=== PATIENT | female | born 1975 | race Two or more races ===

== ENCOUNTER 2016-11-06 19:55 | Emergency (ER) | payer OTHER ==
--- NOTE | 2016-11-06 20:15 | EDM.PDOC ---
ED HPI Trauma - General Chief Complaint: Lower Extremity Injury/Pain Stated Complaint: LT LEG HURTS Time Seen by Provider: 11/06/16 20:13 Source: Reports: Patient - History of Present Illness INITIAL COMMENTS - FREE TEXT/NARRATIVE: HISTORY AND PHYSICAL: History of present illness: [] Patient presents with left lower extremity pain, she has had the pain since last Sunday, at the time of injury she had stumbled and heard an audible pop, she was seen to the clinic at [place] provided rest ice elevation for potential poor muscle per patient. Today his lower extremity swelling there is bruising about the ankle Homans she has been ambulating No fever nausea vomiting chills sweats Review of systems: As per history of present illness and below otherwise all systems reviewed and negative. Past medical history: As per history of present illness and as reviewed below otherwise noncontributory. Surgical history: As per history of present illness and as reviewed below otherwise noncontributory. Social history: No reported history of drug or alcohol abuse. Family history: As per history of present illness and as reviewed below otherwise noncontributory. Physical exam: HEENT: Atraumatic, normocephalic, pupils reactive, negative for conjunctival pallor or scleral icterus, mucous membranes moist, throat clear, neck supple, nontender, trachea midline. Lungs: Clear to auscultation, breath sounds equal bilaterally, chest nontender. Heart: S1S2, regular, negative for clicks, rubs, or JVD. Abdomen: Soft, nondistended, nontender. Negative for masses or hepatosplenomegaly. Negative for costovertebral tenderness. Pelvis: Stable nontender. Genitourinary: Deferred. Rectal: Deferred. Extremities: Atraumatic, negative for cords or calf pain. Neurovascular unremarkable. Left lower extremity hip and knee unaffected ankle is swollen with dependent bruising neurovascular is intact, significant tenderness proximal to insertion of the Achilles tendon along with bruising, there is also swelling in calf and tenderness, unable to perform heel rise on the left, Abrams test is positive however I do not clearly appreciate a defect of the Achilles Neuro: Awake, alert, oriented. Cranial nerves II through XII unremarkable. Cerebellum unremarkable. Motor and sensory unremarkable throughout. Exam nonfocal. Diagnostics: [] X-ray left ankle 3 views Ultrasound rule out DVT Therapeutics: [] Followup with ORtho to evaluate Achilles tendon Cam boot Impression: [] Cannot rule out Achilles tendon rupture/or partial tear Definitive disposition and diagnosis as appropriate pending reevaluation and review of above. Allergies/ADRs: Allergies No Known Allergies Allergy (Verified 11/06/16 20:03) Home Medications: Ambulatory Orders Citalopram Hydrobromide [Celexa] 20 mg PO DAILY 11/06/16 [Confirmed 11/06/16] Iron 18 mg PO 11/06/16 Lisinopril 20 mg PO DAILY 11/06/16 [Confirmed 11/06/16] Omeprazole 20 mg PO DAILY 11/06/16 [Confirmed 11/06/16] Simvastatin [Zocor] 20 mg PO BEDTIME 11/06/16 [Confirmed 11/06/16] metFORMIN [Glucophage XR] 1,000 mg PO BIDMEALS 11/06/16 [Confirmed 11/06/16] Review of Systems - Review of Systems Review Of Systems: ROS reveals no pertinent complaints other than HPI. Trauma Exam - Physical Exam Exam: See Below Course - Vital Signs Last Recorded V/S: Last Vital Signs Temp 36.2 C 11/06/16 20:06 Pulse 86 11/06/16 20:06 Resp 16 11/06/16 20:06 BP 142/84 H 11/06/16 20:06 Pulse Ox 97 11/06/16 20:06 - Orders/Labs/Meds Orders: Active Orders 24 hr Category Date Time Status Ankle Min 3V Lt [CR] Stat Exams 11/06/16 20:12 Taken Venous Doppler Lwr Ext Lt [US] Stat Exams 11/06/16 20:12 Taken Departure - Departure Time of Disposition: 21:29 Disposition: Home, Self-Care 01 Condition: good Clinical Impression: Ankle pain, left Forms: ED Department Discharge Additional Instructions: Followup with orthopedist to evaluate Achilles tendon Rest ice ibuprofen Cam boot provided As discussed you do have symptoms to go along with a partially torn Achilles however I do not appreciate a clear defect in the Achilles tendon. It is concerning that you're unable to perform a heel rise maneuver and tender along the Achilles this may indicate a partial tear [facility] Professional [address], [address] [place] [address] my orthopedic An orthopedic referral will be provided The following information is given to patients seen in the emergency department who are being discharged to home. This information is to outline your options for follow-up care. We provide all patients seen in our emergency department with a follow-up referral. The need for follow-up, as well as the timing and circumstances, are variable depending upon the specifics of your emergency department visit. If you don't have a primary care physician on staff, we will provide you with a referral. We always advise you to contact your personal physician following an emergency department visit to inform them of the circumstance of the visit and for follow-up with them and/or the need for any referrals to a consulting specialist. The emergency department will also refer you to a specialist when appropriate. This referral assures that you have the opportunity for follow-up care with a specialist. All of these measure are taken in an effort to provide you with optimal care, which includes your follow-up. Under all circumstances we always encourage you to contact your private physician who remains a resource for coordinating your care. When calling for follow-up care, please make the office aware that this follow-up is from your recent emergency room visit. If for any reason you are refused follow-up, please contact the [facility] emergency department at and asked to speak to the emergency department charge nurse. - My Orders Last 24 Hours: My Active Orders 11/06/16 20:12 Ankle Min 3V Lt [CR] Stat Venous Doppler Lwr Ext Lt [US] Stat - Assessment/Plan Last 24 Hours: My Active Orders 11/06/16 20:12 Ankle Min 3V Lt [CR] Stat Venous Doppler Lwr Ext Lt [US] Stat
[2016-11-06 22:05] VITALS: BP 131/81
--- NOTE | 2016-11-07 12:39 | CR ---
EXAM DATE: 11/06/16 PATIENT'S AGE: 41 Patient: KRUPA MARIE Facility: [place], [place] Site . Site : 1975 Study: XRay Extremity ankle [id number]/[id number] 8:30:16 PM Ordering Physician: Joe Lantigua Final Report: Indication: Pain, swelling, bruising, no known injury Technique: Three views left ankle Comparison: None Findings: Bones: Alignment is normal. No fractures or bone lesions. There is a small inferior calcaneal enthesophytes. Joint spaces: Unremarkable. Soft tissues: There is soft tissue swelling along the medial malleolus. Impression: Soft tissue swelling along the medial malleolus. No acute osseous abnormality. Dictated by Zaira Sampson MD @ Nov 06 2016 8:51PM (Electronic Signature) Report Signed by Proxy and Original Signed Document filed in the Medical Record. ALBERTO
--- NOTE | 2016-11-07 12:41 | US ---
EXAM DATE: 11/06/16 PATIENT'S AGE: 41 Patient: KRUPA MARIE Facility: [place], [place] Site . Site : 1975 Study: US Extremity Left [id number]/[id number] 8:58:12 PM Ordering Physician: Joe Lantigua Final Report: INDICATION: Pain and bruising left lower leg and ankle TECHNIQUE: Ultrasound venous duplex lower left extremity. Compression venous exam was performed using rose-scale, color Doppler, and spectral Doppler analysis. COMPARISON: None FINDINGS: Sonographic imaging demonstrates the left common femoral, deep femoral, superficial femoral, popliteal, posterior tibial and greater saphenous veins to be fully compressible with normal color Doppler blood flow. Evaluation of the site of bruising in the lower leg demonstrates a 4.3 x1.7 centimeter fluid collection. IMPRESSION: 1. No sign of deep venous thrombosis. 2. Fluid collection deep to the site of bruising in the lower leg. This may represent a hematoma. Dictated by Zaira Sampson MD @ Nov 06 2016 9:04PM (Electronic Signature) Report Signed by Proxy and Original Signed Document filed in the Medical Record. [facility]
== END 2016-11-06 21:59 | disposition home or self-care (01) ==
LOC: MW.ED 19:55
DX: S90.02XA Contusion of left ankle, initial encounter (principal); W18.40XA Slipping, tripping and stumbling without falling, unspecified, initial encounter
CPT/HCPCS: 73610-26-LT; 73610-LT; 93971-26-LT; 93971-LT; 99282; 99283

== ENCOUNTER 2022-01-17 06:28 | Day surgery (SDC) | payer BC ==
[~2022-01-17 06:28] MED LIST: Lactated Ringers 1,000 ML IV SCH
[2022-01-17] MEDS ORDERED: Lidocaine 2% 5 ML SDV ONE (07:19)
[2022-01-17] MEDS ORDERED: Sugammadex Sodium 200 MG/2 ML VIAL ONE (07:19)
[2022-01-17] MEDS ORDERED: Midazolam 1 MG/ML 2 ML SDV ONE (07:19)
[2022-01-17] MEDS ORDERED: Ketorolac 30 MG/ML SDV ONE (07:19)
[2022-01-17] MEDS ORDERED: Ondansetron 4 MG/2 ML SDV ONE (07:19)
[2022-01-17] MEDS ORDERED: fentaNYL 250 MCG/5 ML SDV ONE (07:19)
[2022-01-17] MEDS ORDERED: Propofol 200 MG/20 ML SDV ONE ×3 (07:19→10:56)
[2022-01-17] MEDS ORDERED: Bupivacaine 0.25% 30 ML SDV ONE ×2 (07:19→08:05)
[2022-01-17] MEDS ORDERED: Dexamethasone 4 MG/ML 5 ML MDV ONE (07:19)
[2022-01-17] MEDS ORDERED: Rocuronium 100 MG/10 ML MDV ONE (07:19)
[2022-01-17] MEDS ORDERED: Methylene Blue 50 MG/10 ML Ampule ONE (07:19)
[2022-01-17] MEDS ORDERED: Bupivacaine 0.25% 10 ML SDV ONE (07:20)
[2022-01-17] MEDS ORDERED: Albuterol 0.083% 2.5 MG/3 ML Neb Soln NEB PRN (07:49)
[2022-01-17] MEDS ORDERED: fentaNYL 100 MCG/2 ML SDV IVPUSH PRN (07:49)
[2022-01-17] MEDS ORDERED: Ondansetron 4 MG/2 ML SDV IVPUSH PRN ×2 (07:49→12:46)
[2022-01-17] MEDS ORDERED: Morphine 4 MG/ML VIAL IVPUSH PRN ×2 (07:49→12:46)
[2022-01-17] MEDS ORDERED: Naloxone 0.4 MG/ML SDV IVPUSH PRN (07:49)
[2022-01-17] MEDS ORDERED: Metoclopramide 10 MG/2 ML SDV IVPUSH PRN (07:49)
[2022-01-17] MEDS ORDERED: HYDROmorphone 1 MG/ML Syringe IVPUSH PRN (07:49)
[2022-01-17] MEDS ORDERED: Octyl 2-Cyanoacrylate 1 Tube ONE ×2 (07:59→11:09)
[2022-01-17] MEDS ORDERED: Scopolamine 1.5 MG Transdermal Patch TOP ONE (08:00)
[2022-01-17] MEDS ORDERED: Lidocaine 1% 20 ML MDV ONE (08:04)
[2022-01-17 08:08] LABS: BLOOD UREA NITROGEN,BUN 11 mg/dL (7.0-18.0); CHLORIDE,CL 103 mmol/L (98-107); GLUCOSE RANDOM 146 mg/dL (74-106); POTASSIUM,K 3.6 mmol/L (3.5-5.1); SODIUM,NA 138 mmol/L (136-145)
[2022-01-17 08:10] LABS: ESTIMATED GFR > 60.0 ml/min
[2022-01-17] MEDS ORDERED: Fluorescein 5 ML Vial ONE (08:56)
[2022-01-17] MEDS ORDERED: Ketamine 500 mg/10 ML MDV ONE (09:19)
[2022-01-17] MEDS ORDERED: HYDROmorphone 2 MG/ML Syringe ONE (09:29)
[2022-01-17] MEDS ORDERED: fentaNYL 100 MCG/2 ML SDV ONE (11:29)
[2022-01-17] MEDS: Acetaminophen/oxyCODONE 325-5 MG Tab PO PRN ×2 (17:09→21:33)
[2022-01-17] MEDS: Lisinopril 5 MG Tab PO SCH (21:51)
[2022-01-17] MEDS: Empagliflozin 10 MG Tab PO SCH (21:52)
[2022-01-17] MEDS: Propranolol 20 MG Tab PO SCH (21:53)
[2022-01-18 07:34] LABS: BLOOD UREA NITROGEN,BUN 9 mg/dL (7.0-18.0); CARBON DIOXIDE,CO2 25.8 mmol/L (21.0-32.0); CHLORIDE,CL 104 mmol/L (98-107); ESTIMATED GFR > 60.0 ml/min; GLUCOSE RANDOM 120 mg/dL (74-106); POTASSIUM,K 3.3 mmol/L (3.5-5.1); SODIUM,NA 138 mmol/L (136-145)
[2022-01-18] MEDS: Acetaminophen/oxyCODONE 325-5 MG Tab PO PRN ×2 (07:57→14:37)
[2022-01-18 08:32] VITALS: PULSE 81
[2022-01-18] MEDS ORDERED: Empagliflozin 10 MG Tab PO SCH (09:00)
[2022-01-18] MEDS ORDERED: Iron Sucrose Complex 500 MG in Sodium Chloride 0.9% 250 ML IV ONE (09:09)
[2022-01-18] MEDS: Propranolol 20 MG Tab PO SCH (09:12)
[2022-01-18] MEDS: Lisinopril 5 MG Tab PO SCH (09:12)
[2022-01-18] MEDS: Empagliflozin 10 MG Tab PO SCH (10:01)
[2022-01-18 15:16] VITALS: BP 100/65
== END 2022-01-18 15:00 | disposition home or self-care (01) ==
LOC: MW.SDS 06:28 → MW.MS 12:20 → MW.SDS 01-18 15:00
PROVIDERS: ATTEND Obstetrics & Gynecology
DX: D25.2 Subserosal leiomyoma of uterus (principal); D25.1 Intramural leiomyoma of uterus; D25.0 Submucous leiomyoma of uterus; N39.3 Stress incontinence (female) (male); N72 Inflammatory disease of cervix uteri; N80.0 Endometriosis of uterus; N83.8 Other noninflammatory disorders of ovary, fallopian tube and broad ligament; E66.9 Obesity, unspecified; E78.5 Hyperlipidemia, unspecified; F41.9 Anxiety disorder, unspecified; I10 Essential (primary) hypertension; E11.9 Type 2 diabetes mellitus without complications; K21.9 Gastro-esophageal reflux disease without esophagitis; D50.9 Iron deficiency anemia, unspecified; Z79.899 Other long term (current) drug therapy; Z98.890 Other specified postprocedural states; Z90.49 Acquired absence of other specified parts of digestive tract; Z01.812 Encounter for preprocedural laboratory examination; Z20.822 Contact with and (suspected) exposure to COVID-19
CPT/HCPCS: 36415; 57288; 58554; 80053; 81025; 82947; 85025; 85027; 85384; 85610; 85730; 86850; 86900; 86901; 87635; A9270; C1771; J0131; J0690; J1100; J1170; J1756; J1885; J2250; J2704; J3010; J3490; J7030; J7050; J7120; 00944; J2405; U0002